=== PATIENT | female | born 1970 | race Caucasian/White ===

== ENCOUNTER 2019-10-01 00:15 | Emergency (ER) | payer OTHER ==
[~2019-10-01] VITALS: Ht 167.6 cm; Wt 77.6 kg
[2019-10-01 00:16] VITALS: BP 146/90
== END 2019-10-01 00:47 | disposition home or self-care (01) ==
LOC: ED 00:41
DX: S61.412A Laceration without foreign body of left hand, initial encounter (principal); X58.XXXA Exposure to other specified factors, initial encounter; Y93.89 Activity, other specified; Y92.89 Other specified places as the place of occurrence of the external cause; Y99.8 Other external cause status
CPT/HCPCS: 99281

== ENCOUNTER 2020-06-07 12:21 | Emergency (ER) | payer SELFPAY ==
[~2020-06-07] VITALS: Ht 167.6 cm; Wt 72.0 kg
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
--- NOTE | 2020-06-07 12:47 | NUR ---
TASK RN: PT TRYING TO GET OUT OF BED, REDIRECTED TO LAY BACK DOWN, PT COMPLIED AT THIS TIME. FALL PRECAUTIONS IN PLACE.
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
== END 2020-06-07 13:57 | disposition home or self-care (01) ==
LOC: ED 13:51
DX: F10.120 Alcohol abuse with intoxication, uncomplicated (principal); Y90.9 Presence of alcohol in blood, level not specified
CPT/HCPCS: 99283